=== PATIENT | female | born 1975 | race Two or more races ===

== ENCOUNTER 2019-11-22 05:55 | Day surgery (SDC) | payer OTHER ==
[2019-11-18 14:12] VITALS: BMI 48.8
--- NOTE | 2019-11-22 07:04 | HP ---
History & Physical Update - History History: No Change - Physical Physical: No Change - Assessment Assessment: No Change - Plan Plan: No Change
[2019-11-22] MEDS ORDERED: ACETAMINOPHEN 325 MG TABLET (FP) PO PRN ×2 (07:15→08:57)
[2019-11-22] MEDS ORDERED: oxyCODONE HCL 5 MG TABLET PO PRN ×3 (07:15→08:57)
[2019-11-22] MEDS ORDERED: LIDOCAINE HCL 1%, 10 MG/ML (20ML VIAL) ONE (07:16)
[2019-11-22] MEDS ORDERED: SUCCINYLCHOLINE CHLORIDE 200 MG/10 ML SYRINGE ONE (07:16)
[2019-11-22] MEDS ORDERED: PROPOFOL 20 ML ONE ×4 (07:16→08:07)
[2019-11-22] MEDS ORDERED: EPHEDRINE SULFATE/0.9% NACL/PF 50 MG/10 ML SYRINGE NR ONE (07:16)
[2019-11-22] MEDS ORDERED: MIDAZOLAM HCL 2 MG/2 ML SINGLE DOSE VIAL ONE (07:16)
[2019-11-22] MEDS ORDERED: LIDOCAINE HCL/PF 2% SDV 5ML VIAL ONE (07:18)
[2019-11-22] MEDS ORDERED: GLYCOPYRROLATE 0.2 MG/1 ML VIAL ONE (07:46)
[2019-11-22] MEDS ORDERED: KETOROLAC TROMETHAMINE 30 MG/1 ML VIAL ONE (08:15)
[2019-11-22] MEDS ORDERED: ONDANSETRON 4 MG/2 ML VIAL ONE (08:15)
[2019-11-22] MEDS ORDERED: DEXAMETHASONE SOD PHOSPHATE 4 MG/1 ML VIAL ONE (08:15)
[2019-11-22] MEDS ORDERED: LIDOCAINE HCL 1%, 10 MG/ML (20ML VIAL) ID ONE (08:20)
[2019-11-22] MEDS ORDERED: ONDANSETRON 4 MG/2 ML VIAL IVPUSH PRN (08:57)
[2019-11-22] MEDS ORDERED: LACTATED RINGERS SOLUTION 1,000 ML IV SCH (09:00)
[2019-11-22 09:26] VITALS: TEMP 97.9
[2019-11-22 10:34] VITALS: BP 121/73; PULSE 75
--- NOTE | 2019-11-22 10:51 | OPR ---
PROCEDURE: Right open carpal tunnel release (94102). PREOPERATIVE DIAGNOSIS: Right carpal tunnel syndrome. POSTOPERATIVE DIAGNOSIS: Right carpal tunnel syndrome. SURGEON: Mook Douglas DO MEDICAL SUPPORT SPECIALIST: [place] DO ANESTHESIA: General supplemented with local anesthesia (1% lidocaine). PROSTHETIC DEVICE/IMPLANT: None. SPECIMEN: None. TOTAL BLOOD LOSS: Less than 5 mL. TOURNIQUET TIME: 13 minutes. INDICATIONS: Denise Azul is a 44 year old female with right carpal tunnel syndrome with worsening symptoms. The patient has failed conservative management with bra ce wear and multiple prior corticosteroid injections. She was offered elective right carpal tunnel release. She wished to proceed with the open operative release. We discussed the risks and benefits of the procedure. The risks included but were not limited to infection, wound healing problems, possibility of recurrence, intractable pain, scarring, and further surgery for seen and unforeseen complications and recurrence. The patient gave written consent to proceed. I marked the correct side preoperatively. DESCRIPTION OF SURGERY: The patient was brought to the operating room where after proper identification with the wrist band, she was placed supine on the operating room table. A proximal tourniquet was placed about the right upper extremity. Next, sterile ChloraPrep was used and the extremity was prepped and draped in the usual sterile fashion. We then instilled 8 mL of 1% lidocaine without epinephrine into the glabrous skin of the palm near the area of proposed skin incision. Following Esmarch exsanguination of the extremity, the tourniquet was inflated to 250 mmHg. Of note, total tourniquet time for this case was 13 minutes. Using a #15 blade, a 4 cm longitudinal incision was made beginning at the level of wrist flexion crease extending distally in line with the ring finger ray. The skin was incised sharply. This was taken down to the level of palmar aponeurosis. The palmar aponeurosis was divided in line with the skin incision. The transverse carpal ligament was identified and transected from proximal to distal under direct visualization. The distal most fibers were transected using tenotomy scissors in order to protect the superficial palmar arch. A gloved finger of the surgeon's hand was placed distally in order to ensure complete distal release. Next, using Metzenbaum scissors, the volar forearm fascia was incised for 1 cm proximal wrist flexion crease in line with the transverse carpal ligament incision. The median nerve was inspected. It was found to be flattened throughout its course in the carpal tunnel. Next, the tourniquet was deflated. There was an immediate blush to the median nerve noted. Copious irrigation with normal saline was carried out. Hemostasis was achieved with a bipolar electrocautery. The skin only was then closed with 3-0 nylon. The incision was overlaid with Xeroform gauze followed by dressing sponges. These were held in place with Webril followed by a 4 x 15 inch volar splint held in place with Webril and an José wrap. The patient tolerated the procedure well. There are no intraoperative complications. She was taken to recovery room in good condition.
== END 2019-11-22 10:34 | disposition home or self-care (01) ==
LOC: FASU 05:55
PROVIDERS: ATTEND Orthopaedic Surgery
PROC: 01N50ZZ Release Median Nerve, Open Approach (ICD-10-PCS; principal; 2019-11-22 07:58)
DX: G56.01 Carpal tunnel syndrome, right upper limb (principal)
CPT/HCPCS: 81025; 94760